=== PATIENT | female | born 1940 | race Caucasian/White ===

== ENCOUNTER 2018-05-16 11:05 | Inpatient (IN) | payer MEDICARE ==
[~2018-05-16] VITALS: Ht 161.3 cm; Wt 73.8 kg
[2018-05-16] MEDS ORDERED: ACETAMINOPHEN 325 MG TABLET PO PRN (16:30)
[2018-05-16] MEDS ORDERED: LABETALOL 5MG/ML, 20ML IVPush PRN (16:30)
[2018-05-16] MEDS ORDERED: GLUCAGON 1 MG IM PRN (17:00)
[2018-05-16] MEDS ORDERED: DEXTROSE 50%, 50ML SYRINGE IVPush PRN (17:00)
[2018-05-16] MEDS: PLEASE ENTER HEIGHT AND WEIGHT MC SCH (17:00)
[2018-05-16] MEDS ORDERED: PLEASE ENTER ALLERGIES MC SCH (17:00)
[2018-05-16] MEDS ORDERED: DEXTROSE 4 GM TAB.CHEW PO PRN (17:00)
[2018-05-16] MEDS ORDERED: ESOM40CA PO (17:14)
[2018-05-16] MEDS ORDERED: FURO-93 PO (17:14)
[2018-05-16] MEDS ORDERED: DEXL60CA2 PO (17:14)
[2018-05-16] MEDS ORDERED: ONDA4TAB7 PO (17:14)
[2018-05-16 17:37] LABS: TOTAL PROTEIN 6.3 g/dL (6.4-8.2)
[2018-05-16] MEDS ORDERED: SENN-87 PO (17:45)
[2018-05-16] MEDS ORDERED: HYDR2TAB29 PO (17:45)
[2018-05-16] MEDS ORDERED: ASPI-515 PO (17:45)
[2018-05-16] MEDS ORDERED: LEVO150T5 PO (17:45)
[2018-05-16] MEDS ORDERED: LEFL20TA16 PO (17:45)
[2018-05-16] MEDS ORDERED: METH10TA PO (17:45)
[2018-05-16] MEDS ORDERED: PRED5TAB PO (17:45)
[2018-05-16] MEDS ORDERED: FLUO20CA19 PO (17:45)
[2018-05-16] MEDS ORDERED: NITR0.4T SL (17:45)
[2018-05-16] MEDS ORDERED: GABA300C10 PO (17:45)
[2018-05-16] MEDS ORDERED: PROP20TA PO (17:45)
[2018-05-16] MEDS ORDERED: ACET325T26 PO (17:45)
[2018-05-16] MEDS ORDERED: LOVA40TA2 PO (17:45)
[2018-05-16] MEDS ORDERED: CLOP75TA52 PO (17:45)
[2018-05-16] MEDS ORDERED: SULF500T47 PO (17:45)
[2018-05-16] MEDS ORDERED: FOLI-17 PO (17:45)
[2018-05-16] MEDS ORDERED: DOCU-131 PO (17:45)
[2018-05-16] MEDS ORDERED: [UNRECOGNIZED DRUG - OTHER] (17:45)
[2018-05-16] MEDS ORDERED: LISI10TA2 PO (17:45)
[2018-05-16] MEDS ORDERED: HYDR50TA13 PO ×2 (17:45)
[2018-05-16 17:57] LABS: MD YES; MEAN CORPUSCULAR HEMOGLOBIN 29.9 pg (27.0-34.8); MEAN CORPUSCULAR HGB CONC 32.2 g/dL (32.4-35.8); MEAN CORPUSCULAR VOLUME 92.8 fL (80-100); RED BLOOD COUNT 2.91 x10^6/uL (3.82-5.3); RED CELL DISTRIBUTION WIDTH 19.5 % (9.6-15.2)
[2018-05-16 18:00] LABS: ALANINE AMINOTRANSFERASE 38 U/L (12-78); ALBUMIN 1.9 g/dL (3.4-5.0); ANION GAP 17 mmol/L (5-15); CALCIUM 7.6 mg/dL (8.5-10.1); CHLORIDE 114 mmol/L (98-107); CREATININE 1.99 mg/dL (0.55-1.02); MEAN PLATELET VOLUME 11.1 fL (7.4-10.4); PLATELET COUNT 21 x10^3/uL (130-400)
[2018-05-16 18:02] LABS: ALKALINE PHOSPHATASE 154 U/L (45-117); BILIRUBIN,TOTAL 1.9 mg/dL (0.2-1.0)
[2018-05-16 18:04] LABS: BAND#(MANUAL) 0.91 x10^3/uL; BANDS%(MANUAL) 12 % (0-7); LYMPH#(MANUAL) 0.38 x10^3/uL (1-3.4); LYMPHS% (MANUAL) 5 % (22-44); NRBC % (MANUAL) 1 % (0-1); SEG#(MANUAL) 6.31 x10^3/uL (1.8-6.8); SEGS% (MANUAL) 83 % (42-75)
[2018-05-16 18:05] LABS: ANISOCYTOSIS 1+; HYPOCHROMIA 1+; POLYCHROMASIA 1+
[2018-05-16 18:06] LABS: SCHISTOCYTES 1+; TARGET CELLS 1+
[2018-05-16 18:07] LABS: <PLATELET ESTIMATE> DECREASED; <PLT MORPHOLOGY> NORMAL PLT MORPH
[2018-05-16] MEDS ORDERED: CEFTRIAXONE 1,000 MG in SODIUM CHLORIDE 0.9% 50 ML IV SCH (18:30)
[2018-05-16] MEDS: LEVOTHYROXINE 150 MCG TABLET PO SCH (19:30)
[2018-05-16] MEDS ORDERED: ONDANSETRON 4 MG TABLET PO PRN (19:30)
[2018-05-16 19:41] VITALS: BP 125/82
[2018-05-16] MEDS ORDERED: FUROSEMIDE 40 MG/4 ML IV ONE (20:00)
[2018-05-16] MEDS ORDERED: FUROSEMIDE 40 MG/4 ML ONE (20:01)
[2018-05-16] MEDS: DOCUSATE 100 MG CAPSULE PO SCH (20:07)
[2018-05-16] MEDS: GABAPENTIN 300 MG CAPSULE PO SCH (20:08)
[2018-05-16] MEDS: PROPRANOLOL 20 MG TABLET PO SCH (20:08)
[2018-05-16] MEDS: SENNOSIDES 8.6 MG TABLET PO SCH (20:08)
[2018-05-16] MEDS: LISINOPRIL 10 MG TABLET PO SCH (20:08)
[2018-05-16] MEDS: LOVASTATIN 40 MG TABLET PO SCH (20:08)
[2018-05-16] MEDS: SODIUM CHLORIDE FLUSH 10ML SYR IVF SCH (20:09)
[2018-05-16 21:37] VITALS: BP 167/87
[2018-05-16] MEDS: D5%-LACTATED RINGERS 1,000 ML IV SCH (22:31)
[2018-05-16 23:23] VITALS: BP 126/78
[2018-05-17] VITALS (8 sets, daily range): BP systolic 97–141; BP diastolic 57–81
[2018-05-17] MEDS: LEVOTHYROXINE 150 MCG TABLET PO SCH ×2 (00:49→19:31)
[2018-05-17] MEDS: PLEASE ENTER HEIGHT AND WEIGHT MC SCH ×2 (01:00→07:32)
[2018-05-17] MEDS ORDERED: TEMPLATE NON-FORMULARY MED. (Esomeprazole Magnesium** (Nexium**) 40 MG) PO SCH (07:30)
[2018-05-17] MEDS ORDERED: PANTOPROZOLE 40MG TABLET PO SCH (07:30)
[2018-05-17] MEDS: DOCUSATE 100 MG CAPSULE PO SCH ×2 (07:32→19:17)
[2018-05-17] MEDS: SULFASALAZINE 500 MG TABLET PO SCH ×2 (07:32→16:44)
[2018-05-17] MEDS: LISINOPRIL 10 MG TABLET PO SCH (07:33)
[2018-05-17] MEDS: PROPRANOLOL 20 MG TABLET PO SCH ×3 (07:33→19:17)
[2018-05-17 09:00] LABS: ANION GAP 11 mmol/L (5-15); CALCIUM 8.1 mg/dL (8.5-10.1); CHLORIDE 117 mmol/L (98-107); CREATININE 2.22 mg/dL (0.55-1.02)
[2018-05-17] MEDS: SODIUM CHLORIDE FLUSH 10ML SYR IVF SCH ×2 (09:00→21:22)
[2018-05-17] MEDS ORDERED: FOLIC ACID 1 MG TABLET PO SCH (09:00)
[2018-05-17] MEDS ORDERED: ASPIRIN 81 MG TABLET EC PO SCH (09:00)
[2018-05-17] MEDS ORDERED: FLUOXETINE HCL 20 MG CAPSULE PO SCH (09:00)
[2018-05-17] MEDS ORDERED: TEMPLATE NON-FORMULARY MED. (Dexlansoprazole** (Dexilant**) 60 MG) PO SCH (09:00)
[2018-05-17 09:18] LABS: MEAN CORPUSCULAR HGB CONC 32.6 g/dL (32.4-35.8); MEAN CORPUSCULAR VOLUME 92.1 fL (80-100); RED CELL DISTRIBUTION WIDTH 18.8 % (9.6-15.2)
[2018-05-17 09:20] LABS: MD YES
[2018-05-17 09:22] LABS: ANISOCYTOSIS 1+; BAND#(MANUAL) 0.49 x10^3/uL; BANDS%(MANUAL) 6 % (0-7); LYMPH#(MANUAL) 0.41 x10^3/uL (1-3.4); LYMPHS% (MANUAL) 5 % (22-44); MONOS#(MANUAL) 0.32 x10^3/uL (0.3-2.7); MONOS% (MANUAL) 4 % (2-9); NRBC % (MANUAL) 1 % (0-1); SEG#(MANUAL) 6.89 x10^3/uL (1.8-6.8); SEGS% (MANUAL) 85 % (42-75)
[2018-05-17 09:23] LABS: <PLATELET ESTIMATE> DECREASED; HYPOCHROMIA 1+; LARGE PLATELETS 1+
[2018-05-17 09:24] LABS: SCHISTOCYTES 1+; TARGET CELLS 1+
[2018-05-17 09:25] LABS: POLYCHROMASIA 1+
[2018-05-17 09:26] LABS: MEAN PLATELET VOLUME 10.9 fL (7.4-10.4)
[2018-05-17 09:27] LABS: PLATELET COUNT 17 x10^3/uL (130-400)
[2018-05-17] MEDS ORDERED: MAGNESIUM SULFATE PMX 2GM/50ML 50 ML IV ONE (11:00)
[2018-05-17] MEDS ORDERED: CEFEPIME 2 GM in DEXTROSE 5% 100 ML IV SCH (11:30)
[2018-05-17] MEDS ORDERED: VANCOMYCIN PER PHARMACY MC PRN (11:30)
[2018-05-17] MEDS ORDERED: PHARMACOKINETIC MONITORING MC PRN (12:00)
[2018-05-17] MEDS ORDERED: VANCOMYCIN 1,400 MG in SODIUM CHLORIDE 0.9% 250 ML IV ONE (12:00)
[2018-05-17] MEDS ORDERED: LIDOCAINE-MPF 2%, 2ML ONE ×2 (12:32→13:15)
[2018-05-17] MEDS: D5%-LACTATED RINGERS 1,000 ML IV SCH (13:00)
[2018-05-17] MEDS ORDERED: LINEZOLID PMX 600MG/300ML 300 ML IV SCH (13:30)
[2018-05-17] MEDS ORDERED: VISIPAQUE 270 MG/ML, 50ML BOTTLE ONE (13:33)
[2018-05-17] MEDS ORDERED: HYDROCORTISONE 100 MG INJ. IVPush SCH (15:30)
[2018-05-17] MEDS ORDERED: FUROSEMIDE 40 MG/4 ML IV ONE (17:00)
[2018-05-17] MEDS: SENNOSIDES 8.6 MG TABLET PO SCH (19:17)
[2018-05-17] MEDS: GABAPENTIN 300 MG CAPSULE PO SCH (19:17)
[2018-05-17] MEDS: LOVASTATIN 40 MG TABLET PO SCH (19:17)
[2018-05-17] MEDS ORDERED: SCOPOLAMINE PATCH, 1.5MG PATCH.TD72 TD SCH (21:00)
[2018-05-17] MEDS: LORazepam 2 MG/ML, 1ML IVPush PRN ×2 (21:21→23:02)
[2018-05-17] MEDS: MORPHINE SULFATE 4 MG/ML, 1ML IVPush PRN (22:24)
[2018-05-18] MEDS: MORPHINE SULFATE 4 MG/ML, 1ML IVPush PRN ×8 (01:05→22:43)
[2018-05-18] MEDS: LORazepam 2 MG/ML, 1ML IVPush PRN ×5 (02:10→20:27)
[2018-05-18] MEDS: ATROPINE OPHTH SOLN 1%, 2ML MM PRN ×2 (03:16→05:44)
[2018-05-19] MEDS: MORPHINE SULFATE 4 MG/ML, 1ML IVPush PRN ×4 (01:45→13:07)
[2018-05-19] MEDS: ATROPINE OPHTH SOLN 1%, 2ML MM PRN ×2 (09:40→12:11)
[2018-05-19] MEDS: LORazepam 2 MG/ML, 1ML IVPush PRN (15:46)
== END 2018-05-19 22:10 | disposition expired | DRG 871 ==
LOC: 4WST 16:08 → 3NW 05-18 15:28
PROVIDERS: ADMIT Internal Medicine; ATTEND Internal Medicine
PROC: 02HV33Z Insertion of Infusion Device into Superior Vena Cava, Percutaneous Approach (ICD-10-PCS; principal; 2018-05-17)
PROC: B518YZA Fluoroscopy of Superior Vena Cava using Other Contrast, Guidance (ICD-10-PCS; 2018-05-17)
PROC: B548ZZA Ultrasonography of Superior Vena Cava, Guidance (ICD-10-PCS; 2018-05-17)
PROC: 30233R1 Transfusion of Nonautologous Platelets into Peripheral Vein, Percutaneous Approach (ICD-10-PCS; 2018-05-17)
DX: A41.51 Sepsis due to Escherichia coli [E. coli] (principal); J18.9 Pneumonia, unspecified organism; J96.21 Acute and chronic respiratory failure with hypoxia; G93.40 Encephalopathy, unspecified; F11.20 Opioid dependence, uncomplicated; I50.42 Chronic combined systolic (congestive) and diastolic (congestive) heart failure; N17.9 Acute kidney failure, unspecified; I13.0 Hypertensive heart and chronic kidney disease with heart failure and stage 1 through stage 4 chronic kidney disease, or unspecified chronic kidney disease; N39.0 Urinary tract infection, site not specified; R65.20 Severe sepsis without septic shock; D63.8 Anemia in other chronic diseases classified elsewhere; D69.6 Thrombocytopenia, unspecified; E03.9 Hypothyroidism, unspecified; E11.22 Type 2 diabetes mellitus with diabetic chronic kidney disease; E83.42 Hypomagnesemia; E11.51 Type 2 diabetes mellitus with diabetic peripheral angiopathy without gangrene; E88.09 Other disorders of plasma-protein metabolism, not elsewhere classified; G89.29 Other chronic pain; N18.3 Chronic kidney disease, stage 3 (moderate); I25.10 Atherosclerotic heart disease of native coronary artery without angina pectoris; K22.70 Barrett's esophagus without dysplasia; K52.9 Noninfective gastroenteritis and colitis, unspecified; F32.9 Major depressive disorder, single episode, unspecified; F41.9 Anxiety disorder, unspecified; K21.0 Gastro-esophageal reflux disease with esophagitis; M06.9 Rheumatoid arthritis, unspecified; Z51.5 Encounter for palliative care; Z79.52 Long term (current) use of systemic steroids; Z80.3 Family history of malignant neoplasm of breast; Z86.73 Personal history of transient ischemic attack (TIA), and cerebral infarction without residual deficits; Z87.891 Personal history of nicotine dependence; Z99.81 Dependence on supplemental oxygen; Z88.2 Allergy status to sulfonamides; Z80.1 Family history of malignant neoplasm of trachea, bronchus and lung; Z80.6 Family history of leukemia
CPT/HCPCS: 36415; 36569; 70450; 71045; 71250; 76937; 77001; 80048; 80053; 82962; 83605; 83735; 84100; 85025; 85384; 86850; 86900; 87040; 93306; J0696; J1940; J2020; J3490; Q9966; C1751; C1769; J1720; J2060; J3475; J7121; P9035